=== PATIENT | female | born 1955 | race Caucasian/White ===

== ENCOUNTER → 2016-12-04 | Outpatient (CLI) | payer OTHER ==
[~2016-12-04] MED LIST: CENTTAB PO; LISI20TA PO; LORA1TAB12 PO; METF500T PO; METO50TA PO; SIMV80TA PO
[2016-12-04 13:57] LABS: BASOPHIL % 0.6 % (0.0-2.0); EOSINOPHIL # 0.3 TH/MM3 (0-0.4); EOSINOPHIL % 4.9 % (0.0-4.0); HEMATOCRIT 38.3 % (35.0-46.0); HEMO FLAGS DIFF FINAL; LYMPH % 39.6 % (9.0-44.0); LYMPHOCYTE # 2.5 TH/MM3 (1.0-4.8); MEAN CELL VOLUME 91.7 FL (80.0-100.0); MEAN CORPUSCULAR HEMOGLOBIN 31.5 PG (27.0-34.0); MEAN CORPUSCULAR HGB CONC 34.3 % (32.0-36.0); NEUT % 48.9 % (16.0-70.0); PLATELET COUNT 239 TH/MM3 (150-450); RED BLOOD COUNT 4.18 MIL/MM3 (4.00-5.30); RED CELL DISTRIBUTION WIDTH 12.5 % (11.6-17.2); WHITE BLOOD COUNT 6.2 TH/MM3 (4.0-11.0)
[2016-12-04 13:58] LABS: BLOOD, URINE NEG (NEG); COMMENT (UR) CULT NOT INDICATED; CULTURE IF INDICATED CULT NOT INDICATED; GLUCOSE,URINE NEG (NEG); KETONE, URINE NEG (NEG); MUCUS URINE FEW /lpf (OCC); NITRITE,URINE NEG (NEG); SQUAMOUS EPITHELIAL CELL URINE <1 /hpf (0-5); URINE COLOR LIGHT-YELLOW (YELLW/STRAW)
--- NOTE | 2016-12-05 17:30 | EKG ---
Date Performed: 12/04/2016 Time Performed: 12:55:13 PTAGE: 61 years EKG: Sinus rhythm NORMAL ECG NO PREVIOUS TRACING DOCTOR: Erich Graf Interpretating Date/Time 12/05/2016 17:28:25
== END ==
LOC: CPRE 12:31
PROVIDERS: ATTEND Obstetrics & Gynecology
DX: Z01.810 Encounter for preprocedural cardiovascular examination (principal); Z01.812 Encounter for preprocedural laboratory examination; N85.00 Endometrial hyperplasia, unspecified; D23.9 Other benign neoplasm of skin, unspecified
CPT/HCPCS: 36415; 81001; 85025; 93005

== ENCOUNTER → 2016-12-06 | Day surgery (SDC) | payer OTHER ==
--- NOTE | 2016-12-05 07:46 | MH ---
cc: SUAD HEBERT DATE OF ADMISSION: 12/06/2016 ADMITTING DIAGNOSES 1. Postmenopausal bleeding. 2. Vulvar skin tag. HISTORY OF PRESENT ILLNESS The patient is a 61-year-old single white female para 0, returned for visit on 11/25/2016 having noted two new growths on the vulva and a small quantity of blood per vagina that was painless. The vulva showed some small skin tags. A vaginal ultrasound on 11/25/2016 showed a uterus that measured 4.7 cm, endometrium of 6 mm, possible fibroids. Ovaries appeared normal. She is now admitted for D&C and vulvar biopsies. PAST MEDICAL HISTORY PREVIOUS SURGERY 1. T&A in childhood. 2. 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 3. In 2000 she had right breast carcinoma diagnosed and treated by lumpectomy and chemotherapy. 4. Had a recurrence in 2001 which required right mastectomy. 5. Laminectomy in 2001. 6. Melanoma excised from the chest in 2010. ALLERGIES PENICILLIN. MEDICATIONS Metformin. SOCIAL HISTORY She is single. She works for [employer]. Alcohol occasional. Tobacco none. Drugs none. FAMILY HISTORY Non-contributory. PHYSICAL EXAMINATION GENERAL: A well-nourished, well-developed female. VITAL SIGNS: Stable. HEENT: Exam is normal. CHEST: Clear. HEART: Regular rate. BREASTS: The right breast is absent. Left is normal. ABDOMEN: Benign. PELVIC EXAM: Normal external genitalia and BUS with two skin tags. The vagina is atrophic. Cervix is small. Uterus is normal in size, shape, anterior. No adnexal masses. ASSESSMENT As above. PLAN She is now admitted outpatient hysteroscopy, D&C and vulvar biopsies. While in the office I explained the procedures, the risks, benefits and complications and the patient would like to proceed. MD JARET Mills/THONG /7:27 AM /7:38 AM
[~2016-12-06] VITALS: Ht 172.7 cm; Wt 96.8 kg
[~2016-12-06] MED LIST changes: +ACETAMINOPHEN 1000 MG/100 ML VIAL IV ONE; +CHLORHEXIDINE GLUCONATE 2 % 1 PACK (2 CLOTHS) TOPICAL PRN; +DO NOT ADM ANY ANTICOAGULANT DRUGS PRN; +FAMOTIDINE 20 MG/2 ML VIAL ONE; +INSULIN HUMAN REGULAR 1,000 UNITS/10 ML VIAL SQ PRN; +KETOROLAC TROMETHAMINE 60 MG/2 ML (IM) VIAL IM ONE; +LACTATED RINGER'S 1000 ML IV PRN; +METOCLOPRAMIDE HCL 10 MG/2 ML VIAL IV PRN; +METOPROLOL TARTRATE 25 MG TAB PO PRN; +MIDAZOLAM HCL 2 MG/2 ML VIAL ONE; +ONDANSETRON HCL 4 MG/2 ML VIAL IV PUSH ONE; +POVIDONE IODINE 5% (ANTISEPSIS KIT) 4 APPLICATIONS EACH NARE PRN; +PROPOFOL 200 MG/20 ML AMP IV ONE; +SODIUM CHLORID 0.9% 500 ML IV PRN; +ceFAZolin 1,000 MG/NS 100 ML IV SCH; +ePHEDrine/NS 25 MG/5 ML SYR IV ONE; +fentaNYL CITRATE 250 MCG/5 ML AMP ONE
[2016-12-06 06:19] VITALS: BP 161/91; PULSE 60; RESP 18; TEMP 97.9; O2SAT 97
[2016-12-06 09:12] VITALS: BP 136/78; PULSE 65; RESP 18; TEMP 96.8; O2SAT 100
--- NOTE | 2016-12-07 11:06 | MP ---
cc: SUAD HEBERT DATE OF SURGERY: 12/06/2016 PREOPERATIVE DIAGNOSIS Postmenopausal bleeding and vulvar growth x2. POSTOPERATIVE DIAGNOSIS Postmenopausal bleeding and vulvar growth x2, pathology pending. PROCEDURE Hysteroscopy, D&C and vulvar biopsy x2. ANESTHESIA General LMA. ESTIMATED BLOOD LOSS Less than 10 cc. FLUIDS Half liter of crystalloid. OBJECTIVE FINDINGS Following induction of adequate general LMA anesthesia, the patient was prepped and draped supine on the operating table in dorsolithotomy position in the usual sterile fashion with the bladder being drained via Stewart catheterization. Examination revealed a small anterior uterus with no descent. A hand held speculum was used to expose the cervix. The cervix was grasped anteriorly with a single-tooth tenaculum and gently sounded to 7 cm with a traumatic Os finder. The cervix dilated to a #18 Hanks dilator. Hysteroscope was passed with a normal endocervix and one small polyp in the endometrium polypoid type tissue. The scope was now withdrawn. Endocervical curettings were obtained with an endometrium small serrated curette and the polyp forceps was passed to olive picker the polyp and the loose tissue. The cervical tenaculum was removed. No bleeding was evident. Vaginal instruments removed. On the vulva, there was one lesion left side midway between the clitoris and the posterior fourchette, was excised with a knife and closed with two sutures of 0 Vicryl and one just to the right of the clitoris in the same fashion. All counts were correct. Bleeding was controlled. The patient taken out of the [facility]. She was awakened and taken to the Recovery Room in good condition. MD JARET Mills/BJF /8:03 AM /10:14 AM
== END | disposition home or self-care (01) ==
LOC: HSDC 05:23
PROVIDERS: ATTEND Obstetrics & Gynecology
DX: N95.0 Postmenopausal bleeding (principal); N84.0 Polyp of corpus uteri; L72.0 Epidermal cyst
CPT/HCPCS: 00952; 56605; 58558; 88304; 88305; J0131; J0690; J1885; J2250; J2405; J3010; J7120